=== PATIENT | female | born 1975 | race Caucasian/White ===

== ENCOUNTER 2021-10-09 12:13 | Emergency (ER) | payer OTHER, SELFPAY ==
[2021-10-09 12:19] VITALS: BP 127/81; PULSE 72; RESP 18; TEMP 36.4; O2SAT 98; BMI 37.0
--- NOTE | 2021-10-09 12:30 | ED_ITS ---
HPI - General Adult General Chief complaint: General Medical Stated complaint: sinus/body aches/headaches Time Seen by Provider: 10/09/21 12:27 Source: patient and family Mode of arrival: ambulatory Limitations: no limitations History of Present Illness HPI narrative: 46-year-old female here with reports of sinus pressure, sinus drainage, body aches, fatigue, subjective fevers for 3 days. is sick at home with similar symptoms. No fevers, chills, vomiting, diarrhea, abdominal pain, difficulty breathing or chest pain. Related Data Previous Rx's Medication Instructions Recorded oseltamivir 75 mg capsule (Tamiflu) 75 mg PO Q12H 5 Days #10 cap 10/09/21 Allergies Allergy/AdvReac Type Severity Reaction Status Date / Time No Known Allergies Allergy Unverified 04/05/20 17:13 [No Known Allergies*] Review of Systems Review of Systems: Yes all other systems are reviewed and are negative Constitutional: Constitutional: Reports no additional constitutional complaints, Reports body ache(s), Denies chills, Reports fatigue, Reports fever(s) (subjective ), Denies headache(s) and Denies weakness Eyes: Eyes: Reports no additional eye complaints and Denies change in vision ENT: Reports system reviewed and no additional complaints, except as documented, Denies dizziness, Denies headache(s), Denies nasal congestion, Denies nasal discharge, Denies neck pain, Reports sinus pain and Reports sinus pressure Cardiovascular: Cardiovascular: Reports no additional cardiovascular complaints, Denies chest pain, Denies leg edema and Denies dyspnea Respiratory: Respiratory: Reports no additional respiratory complaints, Denies cough and Denies dyspnea Gastrointestinal: Gastrointestinal: Reports no additional gastrointestinal complaints, Denies abdominal pain, Denies diarrhea, Denies nausea and Denies vomiting Genitourinary: Genitourinary: Reports no additional female genitourinary complaints and Denies urinary incontinence Musculoskeletal: Musculoskeletal: Reports no additional musculoskeletal complaints, Denies back pain, Denies arthralgias, Denies joint swelling, Denies neck pain, Denies numbness and Denies tingling Integumentary/Breasts: Skin/Breast: Reports system reviewed and no additional complaints, except as docu and Denies rash Neurologic: Reports system reviewed and no additional complaints, except as documented, Denies dizziness, Denies headache(s), Denies numbness, Denies tingling and Denies weakness Endocrine: Endocrine: Reports fatigue [facility] Past Medical History Attestation statement: The following information was validated with the patient. Source: old records reviewed and nursing notes reviewed Social History Social History Advance Directives: No Advance Directives Information Provided: No Physical Exam ED Vital Signs: Vital Signs - 24 hr 10/09/21 12:19 Temperature 97.5 F Pulse Rate 72 Respiratory Rate 18 Blood Pressure 127/81 Pulse Oximetry 98 BMI result Body Mass Index 37.0 Const General: cooperative, healthy appearing, comfortable and no acute distress Orientation/consciousness: patient oriented x3 Limitations: no limitations HENMT Head: Yes normal to inspection Ears: hearing grossly normal bilaterally and TM's normal bilaterally General nose exam: Normal external nose present and Abnormal mucous membranes and turbinates present (erythema) Face and sinus: Yes normal facial exam and Yes sinus tenderness (maxillary/frontal TTP) Mouth: Normal oral and palatal mucosa present Teeth and gingiva: dentition normal Throat: Yes posterior oropharynx normal, Yes tonsils normal and Yes uvula midline Eyes General: appearance normal, both eyes and all related structures Pupils: Equal, round and reactive pupils present Neck Neck: Yes normal visual inspection, Yes full ROM, Yes no lymphadenopathy and Yes no meningeal signs Chest Chest palpation & inspection: normal inspection of the chest Resp Effort & Inspection: normal respiratory effort Auscultation: clear to auscultation bilaterally Cardio Rate: regular rate Rhythm: regular rhythm Peripheral pulses: Peripheral pulses 2+ throughout GI Inspection: Yes normal to inspection Palpation (GI): Soft to palpation and nontender General: Yes no CVA tenderness Back/Spine/Pelvis Back: no CVA tenderness Thoracic/Lumbar Spine: thoracic and lumbar spine normal to inspection Skin General skin exam: no rashes or lesions noted Neuro General: patient oriented x3, moves all extremities and no meningeal signs Cranial nerves: Yes CN's II-XII intact bilaterally, Yes Equal, round and reactive pupils present, Yes Bilaterally intact EOM present, Yes Nystagmus not present, Yes Normal facial strength present and Yes Midline tongue present Cognition (Neuro): normal cognition Gait exam (Neuro): Normal gait present Motor exam (neuro): 5/5 motor strength present throughout Sensory Exam: Normal double simultaneous stimulation for sensation Extrem General: Yes normal to inspection, Yes no pedal edema and Yes no calf tenderness Course Course Course Narrative: 46 yo female here with flu like symptoms x several days with +sick contact. Will check flu, covid testing 1330-Flu A+. Will treat with tamiflu x 5 days. Reviewed worrisome signs/symptoms with patient and when to return to the Ed. Comfortable with discharge home. Medical Decision Making Medical Records Medical records reviewed: Yes I reviewed the patient's medical records. Lab Data Lab results reviewed: Yes I reviewed the patient's lab results. Labs: Lab Results 10/09/21 10/09/21 10/09/21 Range/Units 12:31 12:31 12:37 COVID-19 (HEATHER) Negative (Negative) COVID-19 Clin Com See Note Influenza Type A (MELODIE) Cancelled Influenza Type A (PCR) POSITIVE A (Negative) Influenza Type B (MELODIE) Cancelled Influenza Type B (PCR) NEGATIVE (Negative) Influenza A & B Note Cancelled RSV RNA Qual (PCR) NEGATIVE (Negative) SARS-CoV-2 RNA (RT-PCR) NEGATIVE (Negative) Discharge Plan Discharge Clinical Impression: Influenza Patient Disposition: Home, Self-Care Instructions: Influenza (DC) Additional Instructions: testing for covid is negative. You tested positive for the flu Increase fluid, rest Motrin or tylenol as needed for pain or fever Prescriptions: New oseltamivir [Tamiflu] 75 mg capsule 75 mg PO Q12H 5 Days Qty: 10 0RF Referrals: Physician,Unknown J [Primary Care Provider] - 1 week Stand Alone Forms: Work/School Release
[2021-10-09 12:58] LABS: COVID-19 Test Negative (Negative)
[2021-10-09 13:21] LABS: Influenza A PCR POSITIVE (Negative); Influenza B PCR NEGATIVE (Negative); Resp Syncy Virus RNA Qual PCR NEGATIVE (Negative); SARS COV2 PCR INHOUSE NEGATIVE (Negative)
== END 2021-10-09 13:25 | disposition home or self-care (01) ==
PROVIDERS: Nurse Practitioner Family; Emergency Provider Emergency Medicine
DX: M79.10 Myalgia, unspecified site (principal); R05.9 Cough, unspecified; R50.9 Fever, unspecified; Z79.899 Other long term (current) drug therapy; Z20.822 Contact with and (suspected) exposure to COVID-19
CPT/HCPCS: 0241U; 87635; 99283

== ENCOUNTER 2023-08-26 08:33 | Emergency (ER) | payer BC, SELFPAY ==
[2023-08-26 08:42] VITALS: BP 111/74; PULSE 87; RESP 18; TEMP 36.6; O2SAT 96; BMI 35.4
[2023-08-26 09:36] LABS: COVID-19 Test Positive (Negative); IDNOW Serial# 152EDE1D
[2023-08-26 09:38] LABS: IDNOW Serial# 08D9AD1C; Strep A Nucleic Acid Negative (Negative)
[2023-08-26 09:45] LABS: IDNOW Serial# 9DB6401D; Influenza A Negative (Negative); Influenza B2 Negative (Negative)
--- NOTE | 2023-08-26 10:39 | ED.GENADULT ---
HPI - General Adult General Chief complaint: General Medical Stated complaint: Sore throat, fever Time Seen by Provider: 08/26/23 09:20 History of Present Illness HPI narrative: patient complains of 24 hours of body aches mild sore throat runny nose, mild headache, nasal congestion, no cough no shortness of breath no nausea no vomiting no abdominal pain, tolerates both food and drink easily Related Data Previous Rx's Medication Instructions Recorded oseltamivir 75 mg capsule (Tamiflu) 75 mg PO Q12H 5 days #10 caps 10/09/21 nirmatrelvir 300 mg (150 mg See Rx Instructions PO .COMPLEX 08/26/23 x2)-ritonavir 100 mg tablet,dose #30 ea pack (Paxlovid) Allergies Allergy/AdvReac Type Severity Reaction Status Date / Time No Known Allergies Allergy Verified 08/26/23 08:42 [No Known Allergies*] PMFSH Past Medical History [facility] Narrative: takes no regular medications Source: nursing notes reviewed Social History Social History Advance Directives: No Advance Directives Information Provided: No Physical Exam ED Vital Signs: Vital Signs - 24 hr 08/26/23 08:42 Temperature 97.8 F Pulse Rate 87 Respiratory Rate 18 Blood Pressure 111/74 Pulse Oximetry 96 Oxygen Delivery Method Room Air BMI result Body Mass Index 35.4 general appearance comfortable cooperative no acute distress The eyes no redness or discharge The nose is mildly congested no sinus tenderness The pharynx is clear without redness swelling or exudate, membranes are moist Neck is supple Chest clear to auscultation bilateral full symmetric equal breath sounds Extremities range motion x4 Skin no rash Course Course Course Narrative: well-appearing patient was positive for COVID, negative for flu negative for strep She takes no conflicting medications so is given a script for Paxil of it and a work note Medical Decision Making Lab Data Labs: Lab Results 08/26/23 Range/Units 09:10 COVID-19 (HEATHER) Positive A (Negative) COVID-19 Clin Com See Note Influenza Type A (MELODIE) Negative (Negative) Influenza Type B (MELODIE) Negative (Negative) Influenza A & B Note See Note S. pyogenes GrpA MELODIE Negative (Negative) Discharge Plan Discharge Clinical Impression: COVID-19 Patient Disposition: Home, Self-Care Additional Instructions: you did test positive for COVID which in some cases can be dangerous, so I sent a prescription for COVID medication to your pharmacy Return any time for difficulty breathing any worse condition or any concerns Prescriptions: New Paxlovid 300 mg (150 mg x 2)-100 mg tablets,dose pack See Rx Instructions .ROUTE .COMPLEX Qty: 30 0RF Rx Instructions: take TWO 150 mg tablets of nirmatrelvir with ONE 100 mg tablet of ritonavir twice daily for 5 days No Action oseltamivir [Tamiflu] 75 mg capsule 75 mg PO Q12H 5 Days Qty: 10 0RF Stand Alone Forms: Work/School Release
== END 2023-08-26 10:52 | disposition home or self-care (01) ==
PROVIDERS: Emergency Provider Emergency Medicine; PCP Internal Medicine
DX: U07.1 COVID-19 (principal); J02.9 Acute pharyngitis, unspecified
CPT/HCPCS: 87502; 87635; 87651; 99283

== ENCOUNTER 2024-06-30 09:28 | Emergency (ER) | payer BC, SELFPAY ==
--- NOTE | ~2024-06-30 | US_ITS ---
EXAMINATION: US ABDOMEN LIMITED CLINICAL INFORMATION: Gallbladder, CBD.. COMPARISON: None available. TECHNIQUE: Real-time imaging of the gallbladder using grayscale and and color Doppler technique FINDINGS: Fluid-filled gallbladder. No pericholecystic fluid collection or gallbladder wall thickening. Common bile duct measures 4 mm. US/US abdomen limited IMPRESSION: Limited exam demonstrated no cholelithiasis or choledocholithiasis. Electronically signed by: Darren Dias MD 06/30/2024 12:08 PM [facility]
--- NOTE | ~2024-06-30 | XR_ITS ---
EXAMINATION: XR RIBS, RIGHT CLINICAL INFORMATION: pain COMPARISON: None available. TECHNIQUE: PA view of the chest, and 4 views right ribs. FINDINGS: Lungs are clear. No consolidation, pneumothorax, or pleural effusion. The cardiomediastinal silhouette and pulmonary vasculature are normal. Minimally displaced fracture of the anterolateral right sixth rib. No additional fractures. No suspicious bone lesions. XR/XR ribs RT min 3V w CXR1V IMPRESSION: 1. Lungs are clear bilaterally. No active pulmonary disease. No pneumothorax or effusion. 2. Suspect nondisplaced fracture anterolateral right sixth rib. Electronically signed by: Dalton Ramirez MD 06/30/2024 03:25 PM [facility]
[2024-06-30 10:22] VITALS: BP 132/77; PULSE 72; RESP 20; TEMP 36.8; O2SAT 97; BMI 36.4
--- NOTE | 2024-06-30 10:29 | ED_ITS ---
HPI - General Adult General Chief complaint: General Medical Stated complaint: l side pain Time Seen by Provider: 06/30/24 12:57 Source: patient, family (daughter acting as airport skilled maintenance supervisor) and RN notes reviewed Mode of arrival: ambulatory Limitations: language barrier History of Present Illness ED Provider: Merlin SANABRIA narrative: 49-year-old female with past medical history significant for obesity presents for evaluation of right-sided flank pain. Patient has 2 days of right flank pain. She has no associated symptoms including nausea vomiting, diarrhea. Her pain is worse with movement She has pain with taking a deep breath No improvement with ibuprofen or Tylenol. Denies any cough, shortness of breath pain Denies any blood in the urine, burning with urination or frequency She denies any history of kidney stones She was a history of section but no other abdominal surgeries Denies any fevers, chills. The pain is a 6/10 Denies any falls or trauma to the right flank Related Data Previous Rx's ?Medication ?Instructions ?Recorded oseltamivir 75 mg capsule (Tamiflu) 75 mg PO Q12H 5 days #10 caps 10/09/21 nirmatrelvir 300 mg (150 mg See Rx Instructions PO .COMPLEX 08/26/23 x2)-ritonavir 100 mg tablet,dose #30 ea pack (Paxlovid) cyclobenzaprine 10 mg tablet 10 mg PO TID PRN muscle spasm #20 06/30/24 tabs ibuprofen 600 mg tablet 600 mg PO Q6H PRN pain #20 tabs 06/30/24 Allergies Allergy/AdvReac Type Severity Reaction Status Date / Time No Known Allergies Allergy Verified 06/30/24 10:23 [No Known Allergies*] Review of Systems 2 Constitutional: Constitutional: Denies body ache(s), Denies chills, Denies fever(s) and Denies headache(s) Eyes: Eyes: Denies blurry vision ENT: Denies vertigo and Denies headache(s) Cardiovascular: Cardiovascular: Denies chest pain and Denies dyspnea Respiratory: Respiratory: Denies cough, Reports pain on inspiration and Denies dyspnea Gastrointestinal: Gastrointestinal: Denies abdominal pain, Denies nausea and Denies vomiting Genitourinary: Genitourinary: Denies dysuria and Denies pelvic pain Musculoskeletal: Musculoskeletal: Reports back pain Integumentary/Breasts: Skin/Breast: Denies rash Neurologic: Denies vertigo and Denies headache(s) PMFSH Social History Social History Advance Directives: No Advance Directives Information Provided: Yes Do you have a plan to hurt others: No Plan Physical Exam ED Vital Signs: Vital Signs - 24 hr 06/30/24 10:22 06/30/24 14:40 Temperature 98.3 F 98.5 F Pulse Rate 72 69 Respiratory Rate 20 18 Blood Pressure 132/77 129/70 Pulse Oximetry 97 97 Oxygen Delivery Method Room Air Room Air BMI result Body Mass Index 36.4 Const General: healthy appearing, comfortable, no acute distress, alert and awake Nutritional Appearance: well nourished Orientation/consciousness: patient oriented x3 HENMT Head: Yes normocephalic and Yes atraumatic Eyes Eyelids: Yes eyelids normal Conjunctivae: conjunctivae normal Sclerae: sclerae normal Corneas: corneas normal Pupils: Equal, round and reactive pupils present EOM: EOMs intact bilaterally Neck Neck: Yes full ROM Resp Effort & Inspection: normal respiratory effort, able to speak in complete sentences and not labored Cardio Rate: regular rate Rhythm: regular rhythm GI Inspection: No distended Palpation (GI): Soft to palpation, not firm, nontender, no guarding and not rigid Back/Spine/Pelvis Other: Tenderness to the right flank without deformity. The area of greatest tenderness was the right posterior axillary line at the level of the 7 through 12th ribs Skin General skin exam: elasticity normal Neuro General: patient oriented x3 Cranial nerves: Yes Equal, round and reactive pupils present and Yes Bilaterally intact EOM present Cognition (Neuro): normal cognition Extrem Other: Moving all extremities well without any obvious deformities Course Course Course Narrative: This is a rapid medical exam performed by Vy Sanders PA-C. The patient is a 49-year-old female with a history of obesity, who presents with right upper quadrant pain x2 days. Pain over right upper quadrant and right flank, states the pain is sharp at times. On exam, the patient's abdomen is soft, nondistended, obese, patient has focal tenderness right upper quadrant with mild involuntary guarding, she pulls my hand away as I am palpating. We will screen basic labs, LFTs, lipase, UA and obtain an ultrasound of the right upper quadrant. The patient is hemodynamically stable and can return to the waiting room pending her full medical assessment. Reevaluation(s) Reevaluation #1: Patient's room x-ray shows concern for a nondisplaced fracture of the anterior lateral right 6th rib. This is consistent with the patient's area of discomfort Time: 15:39 Reevaluation #2: Distal chest x-ray results with the patient. She declines narcotics such as oxycodone morphine prescription but is willing to try muscle relaxers especially to help sleep at night. We will discharge the patient with ibuprofen and cyclobenzaprine Time: 15:39 Medications Administered Discontinued Medications Generic Name Dose Route Start Last Admin Trade Name Freq PRN Reason Stop Dose Admin Ketorolac Tromethamine 30 mg 06/30/24 13:12 06/30/24 13:51 Ketorolac Tromethamine 30 Mg/Ml Vial IM 06/30/24 13:13 30 mg ONCE ONE Administration Medical Decision Making Medical Decision Making [facility] Narrative: 49-year-old female presents for evaluation of right flank pain. In triage she had some tenderness to the right upper quadrant and therefore labs were ordered with an ultrasound and right upper quadrant. There was no evidence of gallstones or cholecystitis. On my exam the patient has never upper quadrant tenderness but does have right flank tenderness. We will get an x-ray of the chest with a PA chest as she reports pain with inspiration. We will get a urinalysis to assess for hematuria or infection. However I think the patient's exam is most consistent with a muscle strain or costochondritis. Differential Diagnosis Differential Diagnoses: The differential diagnosis associated with the presentation includes Right flank pain Obstructive uropathy Pneumonia Biliary disease Muscle strain Lab Data [facility] Lab Attestation statement: I reviewed the patient's lab results. No leukocytosis or anemia. Normal platelet count. No significant electrolyte abnormalities 06/30/24 10:44 06/30/24 10:44 Labs: Lab Results 06/30/24 06/30/24 Range/Units 10:44 13:42 WBC 7.7 (4.8-10.8) X10*3/uL RBC 4.42 (4.20-5.50) X10*6/uL Hgb 13.4 (12.0-16.0) g/dl Hct 39.6 (37.0-47.0) % MCV 89.6 (80.0-98.0) fL MCH 30.3 (27.0-33.0) pg MCHC 33.8 (31.0-35.0) g/dl RDW 13.0 (11.0-16.0) % Plt Count 342 (160-400) X10*3/uL MPV 9.7 (9.4-12.3) fL Immature Gran % (Auto) 0.3 (0.0-0.4) % Neut % (Auto) 54.7 (45-73) % Lymph % (Auto) 32.6 (20-40) % Pepin % (Auto) 9.2 (2-11) % Eos % (Auto) 2.6 (0-4) % Baso % (Auto) 0.6 (0-2) % Lymph # (Auto) 2.5 (1.2-4.9) X10*3/uL [place] # (Auto) 0.7 (0.1-1.2) X10*3/uL Eos # (Auto) 0.2 (0.0-0.4) X10*3/uL Baso # (Auto) 0.1 (0.0-0.2) X10*3/uL Abs Immat Gran (auto) 0.02 (0.00-0.03) X10*3/uL Absolute Neuts (auto) 4.2 (2.0-8.3) x10*3/uL Absolute Nucleated RBC 0.000 (0.0-0.012) X10*3/uL Nucleated RBC % (auto) 0.0 (0.0-0.2) /100WBC Sodium 141 (135-145) mmol/L Potassium 4.1 (3.3-5.1) mmol/L Chloride 111 H (96-108) mmol/L Carbon Dioxide 23 (22-29) mmol/L Anion Gap 11 L (12-20) BUN 13 (9-16) mg/dL Creatinine 0.75 (0.5-1.4) mg/dL Estim Creat Clear Calc 113.3 Estimated GFR > 60 Random Glucose 110 (60-115) mg/dL Calcium 9.6 (8.4-10.2) mg/dL Magnesium 1.9 (1.6-2.6) mg/dL Total Bilirubin 0.4 (0.0-1.0) mg/dL AST 22 (5-31) U/L ALT 32 H (0-31) U/L Alkaline Phosphatase 87 (39-117) U/L Total Protein 8.5 H (6.5-8.0) g/dL Albumin 3.6 (3.5-5.0) g/dL Lipase 28 (8-78) U/L Beta HCG, Quant < 2 mIU/mL Urine Color Yellow Urine Appearance Clear Urine pH 5.5 (5.0-9.0) Ur Specific [place] 1.025 (1.005-1.025) Urine Protein Negative (Neg-Trace) mg/dL Urine Glucose (UA) Negative (Negative) mg/dL Urine Ketones Negative (Negative) mg/dL Urine Blood Negative (Negative) Urine Nitrite Negative (Negative) Ur Leukocyte Esterase Negative (Negative) Independent Interpretation I performed an independent interpretation of an: Plain X-Ray (Agree with Radiology interpretation) Radiology Impression Discussion of test interpretation with radiology: I have reviewed the radiologist's reading. Radiologist Impression: FINDINGS: Fluid-filled gallbladder. No pericholecystic fluid collection or gallbladder wall thickening. Common bile duct measures 4 mm. IMPRESSION: Limited exam demonstrated no cholelithiasis or choledocholithiasis. Electronically signed by: Darren Dias MD 06/30/2024 12:08 PM [facility]: Lungs are clear. No consolidation, pneumothorax, or pleural effusion. The cardiomediastinal silhouette and pulmonary vasculature are normal. Minimally displaced fracture of the anterolateral right sixth rib. No additional fractures. No suspicious bone lesions. IMPRESSION: 1. Lungs are clear bilaterally. No active pulmonary disease. No pneumothorax or effusion. 2. Suspect nondisplaced fracture anterolateral right sixth rib. Discharge Plan Discharge Clinical Impression: Fracture of rib Patient Disposition: Home, Self-Care Instructions: Rib Fracture (ED) Additional Instructions: FINDINGS: Lungs are clear. No consolidation, pneumothorax, or pleural effusion. The cardiomediastinal silhouette and pulmonary vasculature are normal. Minimally displaced fracture of the anterolateral right sixth rib. No additional fractures. No suspicious bone lesions. IMPRESSION: 1. Lungs are clear bilaterally. No active pulmonary disease. No pneumothorax or effusion. 2. Suspect nondisplaced fracture anterolateral right sixth rib. Your x-ray shows concern of a right-sided rib fracture which is the area of your pain. Use ibuprofen/Tylenol for pain. You may use cyclobenzaprine which may help you sleep at night, as this will make you drowsy. Do not drink alcohol or drive after taking it Follow-up with your primary doctor, return for new or worsening symptoms Prescriptions: New ibuprofen 600 mg tablet 600 mg PO Q6H PRN (Reason: pain) Qty: 20 0RF cyclobenzaprine 10 mg tablet 10 mg PO TID PRN (Reason: muscle spasm) Qty: 20 0RF No Action oseltamivir [Tamiflu] 75 mg capsule 75 mg PO Q12H 5 Days Qty: 10 0RF Paxlovid 300 mg (150 mg x 2)-100 mg tablets,dose pack See Rx Instructions .ROUTE .COMPLEX Qty: 30 0RF Rx Instructions: take TWO 150 mg tablets of nirmatrelvir with ONE 100 mg tablet of ritonavir twice daily for 5 days Print Language: [place]an
[2024-06-30 10:52] LABS: MANUAL DIFF FLAG NO
[2024-06-30 10:55] LABS: Basophils Absolute Auto 0.1 X10*3/uL (0.0-0.2); Basophils Percent Auto 0.6 % (0-2); Eosinophils Absolute Auto 0.2 X10*3/uL (0.0-0.4); Eosinophils Percent Auto 2.6 % (0-4); Hematocrit 39.6 % (37.0-47.0); Hemoglobin 13.4 g/dl (12.0-16.0); Imm Gran Abs Auto 0.02 X10*3/uL (0.00-0.03); Imm Gran Pct Auto 0.3 % (0.0-0.4); Lymphocytes Absolute Auto 2.5 X10*3/uL (1.2-4.9); Lymphocytes Percent Auto 32.6 % (20-40); Mean Corpuscular HGB Conc 33.8 g/dl (31.0-35.0); Mean Corpuscular Hemoglobin 30.3 pg (27.0-33.0); Mean Corpuscular Volume 89.6 fL (80.0-98.0); Mean Platelet Volume 9.7 fL (9.4-12.3); Monocytes Absolute Auto 0.7 X10*3/uL (0.1-1.2); Monocytes Percent Auto 9.2 % (2-11); Neutrophils Absolute Auto 4.2 x10*3/uL (2.0-8.3); Neutrophils Percent Auto 54.7 % (45-73); Platelet Count 342 X10*3/uL (160-400); Red Blood Count 4.42 X10*6/uL (4.20-5.50); White Blood Count 7.7 X10*3/uL (4.8-10.8)
[2024-06-30 11:07] LABS: Alanine Aminotransferase 32 U/L (0-31); Albumin Level 3.6 g/dL (3.5-5.0); Alkaline Phosphatase 87 U/L (39-117); Anion Gap 11 (12-20); Aspartate Amino Transferase 22 U/L (5-31); Bilirubin Total 0.4 mg/dL (0.0-1.0); Blood Urea Nitrogen 13 mg/dL (9-16); Calcium 9.6 mg/dL (8.4-10.2); Carbon Dioxide 23 mmol/L (22-29); Chloride 111 mmol/L (96-108); Creatinine Clr Calc Pharmacy 113.3; Estimated Glomerular Filt Rate > 60; Glucose Random 110 mg/dL (60-115); Lipase 28 U/L (8-78); Magnesium 1.9 mg/dL (1.6-2.6); Potassium 4.1 mmol/L (3.3-5.1); Sodium 141 mmol/L (135-145); Total Protein 8.5 g/dL (6.5-8.0)
[2024-06-30 11:13] LABS: HCG Quantitative < 2 mIU/mL
[2024-06-30] MEDS: Ketorolac Tromethamine 30 MG/ML VIAL IM (13:51)
[2024-06-30 13:52] LABS: Appearance Urine Clear; Color Urine Yellow; Glucose Urine UA Negative (Negative); Leukocyte Esterase Urine Negative (Negative); Nitrite Urine Negative (Negative); PH 5.5 (5.0-9.0); Specific Gravity - Urine 1.025 (1.005-1.025); Urine Blood Negative (Negative); Urine Ketones Negative (Negative); Urine Protein Negative (Neg-Trace)
[2024-06-30 14:40] VITALS: BP 129/70; PULSE 69; RESP 18; TEMP 36.9; O2SAT 97
[2024-06-30 15:53] VITALS: BP 129/70; PULSE 69; RESP 18; TEMP 36.9; O2SAT 97
== END 2024-06-30 16:00 | disposition home or self-care (01) ==
PROVIDERS: Physician Assistant Medical; Emergency Provider Student in an Organized Health Care Education/Training Program; PCP Internal Medicine
DX: S22.31XA Fracture of one rib, right side, initial encounter for closed fracture (principal); X58.XXXA Exposure to other specified factors, initial encounter; R10.11 Right upper quadrant pain; Y93.9 Activity, unspecified; Y92.9 Unspecified place or not applicable; Y99.9 Unspecified external cause status; Z79.899 Other long term (current) drug therapy
CPT/HCPCS: 36415; 71101; 76705; 80053; 81003; 83690; 83735; 84702; 85025; 96372; 99283; 99284; J1885

== ENCOUNTER → 2024-06-30 10:28 | Outpatient (BNV) | payer BC, SELFPAY | PROVIDERS: PCP Internal Medicine; Visit Provider Radiology Diagnostic Radiology | DX: S22.31XA Fracture of one rib, right side, initial encounter for closed fracture (principal); R10.9 Unspecified abdominal pain | CPT/HCPCS: 71101; 76705 ==